=== PATIENT | male | born 1990 | race Caucasian/White ===

== ENCOUNTER 2016-08-17 20:21 | Emergency (ER) | payer SELFPAY ==
[~2016-08-17] VITALS: Ht 170.2 cm; Wt 77.1 kg
[2016-08-17 20:45] VITALS: BP 103/59
[2016-08-17] MEDS ORDERED: Famotidine 20 MG/ 2ML VIAL IVP ONE (21:00)
[2016-08-17 21:27] LABS: BASOPHILS % (AUTO) 1.6 % (0.0-2.0); EOSINOPHILS % (AUTO) 1.7 % (0.0-3.0); LYMPHOCYTES % (AUTO) 28.3 % (20.0-45.0); MEAN CORPUSCULAR HEMOGLOBIN 31.7 PG (27.0-31.0); MEAN CORPUSCULAR HGB CONC 34.3 G/DL (32.0-36.0); MEAN CORPUSCULAR VOLUME 93 FL (80-99); MEAN PLATELET VOLUME 8.1 FL (6.5-10.1); MONOCYTES % (AUTO) 9.2 % (1.0-10.0); NEUTROPHILS % (AUTO) 59.1 % (45.0-75.0); PLATELET COUNT 283 K/UL (150-450); WHITE BLOOD COUNT 6.2 K/UL (4.8-10.8)
[2016-08-17 21:28] LABS: INR 1.3 (0.9-1.1); PROTHROMBIN TIME 13.3 SEC (9.30-11.50)
[2016-08-17 21:29] LABS: TROPONIN I < 0.30 ng/mL (<=0.30)
[2016-08-17 21:30] LABS: ALANINE AMINOTRANSFERASE 110 U/L (3-41); ALBUMIN/GLOBULIN RATIO 1.7 (1.0-2.7); ANION GAP 15 (5-15); ASPARTATE AMINO TRANSFERASE 177 U/L (5-40); CALCIUM 8.9 mg/dL (8.6-10.2); CARBON DIOXIDE 26 mEQ/L (20-30); CHLORIDE 79 mEQ/L (98-107); CREATININE 1.3 mg/dL (0.7-1.2); GLOMERULAR FILTRATION RATE > 60 mL/min (>60); HEMOLYSIS 15; LIPASE 47 U/L (< 60); MAGNESIUM 2.1 mg/dL (1.7-2.5); POTASSIUM 4.3 mEQ/L (3.4-4.9); SODIUM 120 mEQ/L (135-145); TOTAL PROTEIN 7.6 g/dL (6.6-8.7)
[2016-08-17 21:58] VITALS: BP 122/54
[2016-08-17 22:09] LABS: APPEARANCE,URINE CLEAR; KETONES,URINE NEGATIVE (NEGATIVE); LEUKOCYTE ESTERASE ,URINE 1+ (NEGATIVE); NITRITE,URINE NEGATIVE (NEGATIVE); PH,URINE 8 (4.5-8.0); PROTEIN,URINE 1+ (NEGATIVE); UROBILINOGEN,URINE NORMAL MG/DL (0.0-1.0)
[2016-08-17 22:21] LABS: BACTERIA,URINE FEW /HPF; RBC,URINE 0-2 /HPF (0 - 0)
--- NOTE | 2016-08-17 23:04 | Emergency Room Report ---
History of Present Illness General Chief Complaint: Abdominal Pain Source: Patient (Reji Miranda M.D.) Present Illness HPI Patient presents with a strange feeling in his body and muscle pain. He was in an endurance competition yesterday. He has been taking creatine and muscle enhancers including some oral steroids, possible diuretics. He feels dehydrated and weak. The competition was yesterday. He still feels ill. He said this happened to him before or he has renal problems in the past. No fevers, vomiting, chest pain, palpitations. No hematuria. Decreased urine. No diarrhea. No abdominal pain. Generalized weakness. Dizzy with standing. Fuzzy thinking. No major medical problems. (Reji Miranda M.D.) Allergies: Coded Allergies: Honey Bee (Verified Allergy, Unknown, 08/17/16) Patient History Past Medical History: see triage record Social History: Denies: smoking Social History Narrative endurance competition - from [place] Reviewed Nursing Documentation: PMH: Agreed, PSxH: Agreed (Reji Miranda M.D.) Nursing Documentation-PM Past Medical History: No Stated History (Reji Miranda M.D.) Review of Systems All Other Systems: negative except mentioned in HPI (Reji Miranda M.D.) Physical Exam Vital Signs Date Time Temp Pulse Resp B/P Pulse Ox O2 Delivery O2 Flow Rate FiO2 08/17/16 20:27 97.5 56 14 128/49 97 Room Air Sp02 EP Interpretation: reviewed, normal General Appearance: well appearing, no apparent distress, GCS 15 Head: normocephalic, atraumatic Eyes: bilateral eye PERRL, bilateral eye normal inspection ENT: moist mucus membranes Neck: supple Respiratory: lungs clear, normal breath sounds Cardiovascular #1: regular rate, rhythm Cardiovascular #2: 2+ radial (R) Gastrointestinal: normal inspection, normal bowel sounds, non tender, no mass, non-distended Musculoskeletal: back normal, gait/station normal, normal range of motion Neurologic: alert, oriented x3, motor strength/tone normal, DTRs symmetric, sensory intact, cerebellar normal, normal gait, speech normal Psychiatric: depressed affect Skin: normal inspection, warm/dry (Reji Miranda M.D.) Medical Decision Making Diagnostic Impression: Primary Impression: Dehydration Additional Impressions: Hyponatremia Rhabdomyolysis Qualified Codes: M62.82 - Rhabdomyolysis ER Course Patient presents with dehydration and dysphoria after endurance competition. Ddx: dehydration, electrolyte abnormality, rhabdomyolysis, renal failure amongst others. Emergent evaluation with labs, EKG. CT not indicated. Treatment with aggressive hydration and zofran. Labs significant for serious hyponatremia and elevated CK. Improved with hydration. Repeated BMP. Sodium better but still low. Signed out to Dr. Remy. 3RD Liter ordered. Laboratory Tests Test 08/17/16 21:00 08/17/16 21:45 08/17/16 23:05 White Blood Count 6.2 K/UL (4.8-10.8) Red Blood Count 5.70 M/UL (4.70-6.10) Hemoglobin 18.1 G/DL (14.2-18.0) *H Hematocrit 52.8 % (42.0-52.0) H Mean Corpuscular Volume 93 FL (80-99) Mean Corpuscular Hemoglobin 31.7 PG (27.0-31.0) H Mean Corpuscular Hemoglobin Concent 34.3 G/DL (32.0-36.0) Red Cell Distribution Width 12.0 % (11.6-14.8) Platelet Count 283 K/UL (150-450) Mean Platelet Volume 8.1 FL (6.5-10.1) Neutrophils (%) (Auto) 59.1 % (45.0-75.0) Lymphocytes (%) (Auto) 28.3 % (20.0-45.0) Monocytes (%) (Auto) 9.2 % (1.0-10.0) Eosinophils (%) (Auto) 1.7 % (0.0-3.0) Basophils (%) (Auto) 1.6 % (0.0-2.0) Prothrombin Time 13.3 SEC (9.30-11.50) H Prothrombin Time INR 1.3 (0.9-1.1) H PTT 36 SEC (23-33) H Sodium Level 120 mEQ/L (135-145) L 122 mEQ/L (135-145) L Potassium Level 4.3 mEQ/L (3.4-4.9) 4.2 mEQ/L (3.4-4.9) Chloride Level 79 mEQ/L (98-107) L 84 mEQ/L (98-107) L Carbon Dioxide Level 26 mEQ/L (20-30) 24 mEQ/L (20-30) Anion Gap 15 (5-15) 14 (5-15) Blood Urea Nitrogen 13 mg/dL (7-23) 12 mg/dL (7-23) Creatinine 1.3 mg/dL (0.7-1.2) H 1.1 mg/dL (0.7-1.2) Estimate Glomerular Filtration Rate > 60 mL/min (>60) > 60 mL/min (>60) Glucose Level 98 mg/dL (74-106) 88 mg/dL (74-106) Lactic Acid Level 1.00 mmol/L (0.66-2.22) Calcium Level 8.9 mg/dL (8.6-10.2) 7.6 mg/dL (8.6-10.2) L Magnesium Level 2.1 mg/dL (1.7-2.5) Total Bilirubin 1.0 mg/dL (0.0-1.2) Aspartate Amino Transferase (AST) 177 U/L (5-40) H Alanine Aminotransferase (ALT) 110 U/L (3-41) H Alkaline Phosphatase 36 U/L (40-129) L Total Creatine Kinase 5274 U/L (26-140) H Troponin I < 0.30 ng/mL (<=0.30) Total Protein 7.6 g/dL (6.6-8.7) Albumin 4.8 g/dL (3.5-5.2) Globulin 2.8 g/dL Albumin/Globulin Ratio 1.7 (1.0-2.7) Lipase 47 U/L (< 60) Urine Color Pale yellow Urine Appearance Clear Urine pH 8 (4.5-8.0) Urine Specific [place] 1.010 (1.005-1.035) Urine Protein 1+ (NEGATIVE) H Urine Glucose (UA) Negative (NEGATIVE) Urine Ketones Negative (NEGATIVE) Urine Occult Blood Negative (NEGATIVE) Urine Nitrite Negative (NEGATIVE) Urine Bilirubin Negative (NEGATIVE) Urine Urobilinogen Normal MG/DL (0.0-1.0) Urine Leukocyte Esterase 1+ (NEGATIVE) H Urine RBC 0-2 /HPF (0 - 0) H Urine WBC 2-4 /HPF (0 - 0) Urine Squamous Epithelial Cells None /LPF (NONE/OCC) Urine Bacteria Few /HPF (NONE) Urine Opiates Screen Negative (NEGATIVE) Urine Barbiturates Screen Negative (NEGATIVE) Phencyclidine (PCP) Screen Negative (NEGATIVE) Urine Amphetamines Screen Negative (NEGATIVE) Urine Benzodiazepines Screen Negative (NEGATIVE) Urine Cocaine Screen Negative (NEGATIVE) Urine Marijuana (THC) Screen Positive (NEGATIVE) H (Reji Miranda M.D.) ER Course Patient signed out to me. 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 He came in severely hyponatremic. He felt better after 3 L of IV fluid. Said that his back to baseline. Does not want to stay in the hospital. Doesn't want further blood work. We'll discharge home after the third liter of normal saline. Advised patient to stop taking diuretics and other supplements. (LALA REMY M.D.) EKG Diagnostic Results Rate: bradycardiac ST Segments: no acute changes (Reji Miranda M.D.) Rhythm Strip Diag. Results EP Interpretation: yes Rhythm: no PVC's, no ectopy, other - mady (Reji Miranda M.D.) Last Vital Signs Date Time Temp Pulse Resp B/P Pulse Ox O2 Delivery O2 Flow Rate FiO2 08/18/16 00:45 97.5 57 15 113/31 100 Room Air Status: improved (Reji Miranda M.D.) Disposition: HOME, SELF-CARE Condition: Improved Scripts Famotidine (PEPCID) 20 Mg Tablet 20 MG ORAL DAILY, #20 TAB 0 Refills Prov: Reji Miranda M.D. 08/17/16 Ondansetron Odt* (ZOFRAN ODT*) 4 Mg Tab.rapdis 4 MG ORAL Q6H Y for Nausea & Vomiting, #6 TAB 0 Refills Prov: Reji Miranda M.D. 08/17/16 Referrals: NOT CHOSEN DOMINICK/,REFERRING (PCP) Reji Miranda M.D. Aug 17, 2016 23:04 LALA REMY M.D. Aug 18, 2016 00:12
[2016-08-17] MEDS ORDERED: PEPCID20 MG ORAL (23:15)
[2016-08-17] MEDS ORDERED: ZOFRAN ODT4 MG ORAL (23:15)
[2016-08-17 23:37] LABS: ANION GAP 14 (5-15); CALCIUM 7.6 mg/dL (8.6-10.2); CARBON DIOXIDE 24 mEQ/L (20-30); CHLORIDE 84 mEQ/L (98-107); CREATININE 1.1 mg/dL (0.7-1.2); GLOMERULAR FILTRATION RATE > 60 mL/min (>60); HEMOLYSIS 48; POTASSIUM 4.2 mEQ/L (3.4-4.9); SODIUM 122 mEQ/L (135-145)
[2016-08-18 00:45] VITALS: BP 113/31
== END 2016-08-18 00:45 | disposition home or self-care (01) ==
LOC: EMR 20:53
DX: E86.0 Dehydration (principal); E87.1 Hypo-osmolality and hyponatremia; M62.82 Rhabdomyolysis; Z91.030 Bee allergy status; R00.1 Bradycardia, unspecified
CPT/HCPCS: 36415; 80048; 80053; 80300; 81003; 82550; 83605; 83690; 83735; 84484; 85025; 85610; 85730; 93005; 96360; 96374; 96375; 99284; J2405; S0028